=== PATIENT | female | born 1995 | race Caucasian/White ===

== ENCOUNTER 2019-02-16 19:30 | Observation (INO) | payer MEDICAID ==
[~2019-02-16] VITALS: Ht 165.1 cm; Wt 75.7 kg
[2019-02-16 20:40] VITALS: BP 109/84
[2019-02-16] MEDS: TERBUTALINE 1 MG/ML VIAL SUBQ SCH ×2 (20:53→21:32)
[2019-02-16] MEDS ORDERED: TERBUTALINE 1 MG/ML VIAL SUBQ ONE (20:59)
[2019-02-16] MEDS ORDERED: PREN-380 PO (21:08)
[2019-02-16] MEDS ORDERED: CALCIUM (21:08)
== END 2019-02-16 22:40 | disposition home or self-care (01) ==
LOC: MLD 19:30
PROVIDERS: ADMIT Obstetrics & Gynecology; ATTEND Obstetrics & Gynecology
DX: O26.893 Other specified pregnancy related conditions, third trimester (principal); R32 Unspecified urinary incontinence; Z3A.30 30 weeks gestation of pregnancy
CPT/HCPCS: 81000; 96372; G0378; J3105